=== PATIENT | female | born 1930 | race Caucasian/White ===

== ENCOUNTER 2021-05-11 16:52 | Emergency (ER) | payer SELFPAY | END 2021-05-11 17:04 | disposition left against medical advice (07) | LOC: ER FS 16:55 | DX: T80.62XA Other serum reaction due to vaccination, initial encounter (principal) ==

== ENCOUNTER 2021-06-17 13:46 | Emergency (ER) | payer MEDICARE, OTHER ==
[~2021-06-17] VITALS: Ht 162.6 cm; Wt 51.2 kg
--- NOTE | 2021-06-17 14:16 | ED Back Pain ---
General Chief Complaint: Back Problems Stated Complaint: BACK PAIN Source of Information: Patient, Caregiver History of Present Illness Date Seen by Provider: Jun 17, 2021 Time Seen by Provider: 14:04 Initial Comments 89-year-old female presenting with her son to the emergency department. She has been having increasing pain to the right flank and back over the last 2 weeks. She does have chronic back pain mainly takes tramadol once a day as well as 12.5 mcg fentanyl patch. She has not had any new injury or reason for the pain to get worse. She has not followed up through the clinic about her pain. She states she hoped it was going to improve on its own. She denies any cough, shortness of breath, abdominal pain, pain with urination, diarrhea, nausea, vomiting. She has had some urinary hesitancy. The right posterior flank pain has moved right to left at times. Heat seems to make the pain better. Associated Symptoms: No fever, No weakness, No numbness in legs/feet, No tingling in legs/feet, No sensory/motor loss, No lower back pain, No loss of bladder control, No loss of bowel control Allergies and Home Medications Allergies Coded Allergies: No Known Drug Allergies (Unverified , 06/17/21) Home Medications Baclofen 5 Mg Tablet, 5 MG PO BID PRN for flank pain/muscle spasm Prescribed by: OMARI LY on 06/17/21 1634 Cephalexin 500 Mg Capsule, 500 MG PO TID Prescribed by: OMARI LY on 06/17/21 1634 Polyethylene Glycol 3350 119 Gm Powder, 17 GM PO DAILY Prescribed by: OMARI LY on 06/17/21 1634 Tramadol HCl 50 Mg Tablet, 50 MG PO BID PRN for PAIN Prescribed by: OMARI LY on 06/17/21 1635 Patient Home Medication List Home Medication List Reviewed: Yes Review of Systems Constitutional: No chills, No fever EENTM: no symptoms reported Respiratory: no symptoms reported Cardiovascular: no symptoms reported Gastrointestinal: no symptoms reported Genitourinary: frequency, hesitancy Musculoskeletal: muscle cramps (Right posterior flank), other (Pain to the right posterior flank and lumbar spine) Skin: No rash Psychiatric/Neurological: Denies Numbness, Denies Paresthesia Physical Exam Vital Signs Vital Signs - First Documented 06/17/21 14:00 Temp 36.5 Pulse 79 Resp 18 B/P (MAP) 165/66 (99) Pulse Ox 99 O2 Delivery Room Air Capillary Refill : Height, Weight, BMI Height: '" Weight: lbs. oz. kg; BMI Method: General Appearance: Anxious Neck: Non Tender, Supple Cardiovascular: Regular Rate, Rhythm, Normal Peripheral Pulses Respiratory: Chest Non Tender, Lungs Clear, Normal Breath Sounds, No Accessory Muscle Use, No Respiratory Distress Gastrointestinal: Normal Bowel Sounds, No Pulsatile Mass, Non Tender, Soft Back: CVA Tenderness (R), Vertebral Tenderness (Lumbar spine) Extremity: Normal Capillary Refill, Normal Inspection, No Pedal Edema Neurologic/Psychiatric: Alert, Oriented x3 Skin: Normal Color, Warm/Dry; No Rash Progress/Results/Core Measures Results/Orders Lab Results Laboratory Tests Test 06/17/21 14:18 Range/Units Urine Color YELLOW Urine Clarity CLEAR Urine pH 6.0 5-9 Urine Specific [place] 1.020 1.016-1.022 Urine Protein NEGATIVE NEGATIVE Urine Glucose (UA) NEGATIVE NEGATIVE Urine Ketones NEGATIVE NEGATIVE Urine Nitrite NEGATIVE NEGATIVE Urine Bilirubin NEGATIVE NEGATIVE Urine Urobilinogen 0.2 < = 1.0 MG/DL Urine Leukocyte Esterase 1+ H NEGATIVE Urine RBC (Auto) NEGATIVE NEGATIVE Urine RBC NONE /HPF Urine WBC 2-5 /HPF Urine Squamous Epithelial Cells RARE /HPF Urine Crystals NONE /LPF Urine Bacteria NEGATIVE /HPF Urine Casts NONE /LPF Urine Mucus MODERATE H /LPF Urine Culture Indicated NO My Orders Orders - OMARI LY MD Ua Culture If Indicated (06/17/21 13:48) Ct Abdomen/Pelvis Wo (06/17/21 14:21) Ketorolac Injection (Toradol Injection) (06/17/21 14:21) Orphenadrine Inj (Ed Only) (Norflex Inje (06/17/21 14:23) Tramadol Tablet (Ultram Tablet) (06/17/21 16:21) Acetaminophen Tablet/Caplet (Tylenol T (06/17/21 16:21) Cephalexin Capsule (Keflex Capsule) (06/17/21 16:21) Vital Signs/I&O 06/17/21 06/17/21 14:00 16:50 Temp 36.5 36.4 Pulse 79 70 Resp 18 18 B/P (MAP) 165/66 (99) 108/68 Pulse Ox 99 96 O2 Delivery Room Air Room Air Progress Progress Note #1: Progress Note With the pain being more in the right flank as well as her lumbar spine will obtain a urinalysis to evaluate for urine infection or kidney stone. CT scan to evaluate for kidney stones or diverticulitis, colitis, compression fracture, UTI. Give Toradol and Norflex to try and help with pain Progress Note #2: Progress Note Urinalysis does show some leukocyte esterase so we will treat for UTI. The CT scan showed a 5 mm pulmonary nodule in the right lower lobe but there is no surrounding inflammation or effusion. Her bowels had increased stool for constipation. Cystic structures in the pelvis around where the ovaries should be. Patient states her pain was improved to 6 or 7. Will give tramadol and Tylenol here in the ED. Counseled to use MiraLAX to help with her constipation. Increase her tramadol from once a day to twice a day. Check back with clinic ultrasound of the ovaries. Have repeat ultrasound of the chest in 3 to 6 months Diagnostic Imaging Diagonstic Imaging: CT Plain Films/CT/US/NM/MRI: abdomen, pelvis Comments [facility] [place], [place] NAME: FRANK THOMPSON [facility] REC#: [id number] PT STATUS: REG ER : 1930 PHYSICIAN: OMARI LY MD ADMIT DATE: 06/17/21/ER FS Signed Date of Exam:06/17/21 CT ABDOMEN/PELVIS WO PROCEDURE: CT abdomen and pelvis without contrast. TECHNIQUE: Multiple contiguous axial images were obtained through the abdomen and pelvis without the use of intravenous contrast. Auto Exposure Controls were utilized during the CT exam to meet ALARA standards for radiation dose reduction. INDICATION: 89-year-old female, right flank pain x2 weeks. CORRELATION STUDY: None. FINDINGS: Examination compromised by motion artifact. LOWER THORAX: Likely areas of subpleural fibrosis. No significant basilar infiltrate. 5 mm nodule in the subpleural region in the right lower lobe. Heart size is borderline enlarged. Small hiatal hernia with some circumferential wall thickening at the gastroesophageal junction. LIVER: Unremarkable. GALLBLADDER: Present and unremarkable. No bile duct dilatation. SPLEEN: Unremarkable. PANCREAS: Unremarkable. ADRENAL GLANDS: 2.2 x 1.9 cm low-density left adrenal gland mass favoring adenoma. Right adrenal gland is unremarkable. KIDNEYS: Some generalized thinning of the renal parenchyma, may be very small cortical cyst in the left kidney. No calcification or obstruction. ABDOMINAL AORTA: Rather extensive abdominal aortic vascular calcification. Extensive calcification in the major branches as well. No aneurysm. GASTROINTESTINAL TRACT: Stomach is collapsed with gastric wall thickening. No evidence for small bowel obstruction. There is [id number] amount of stool through the colon. Colonic diverticulosis without evidence for acute diverticulitis. Negative appendix. URINARY BLADDER: Decompressed. REPRODUCTIVE: Uterus is unremarkable. 2.8 x 2.2 cm low-density right adnexal and 3.1 x 2.6 cm low-density left adnexal cystic mass. OSSEOUS STRUCTURES: Rather advanced degenerative changes are present. Various degrees of disc space narrowing. Generalized bony demineralization. There is slightly asymmetrical ossified L5 vertebral body without definitive acute compression fracture. OTHER: None. IMPRESSION: 1. Negative for acute abnormality of the abdomen or pelvis. 2. Negative for nephroureterolithiasis or obstructive uropathy. 3. Moderate stool retention. Colonic diverticulosis without evidence for acute diverticulitis. Negative for appendicitis. 4. Bilateral adnexal cystic masses, likely ovarian in etiology, may be cystadenomas. Cystic ovarian neoplasm is not excluded. Short-term nonemergent pelvic ultrasound imaging is recommended. 5. Small right lower lobe pulmonary nodule. Consideration for short-term follow-up nonemergent CT chest. Dictated by: Dictated on workstation # [id number] Dict: 06/17/21 1446 Trans: 06/17/21 1629 [id number] Interpreted by: DONNA DAVIS DO Electronically signed by: DONNA DAVIS DO 06/17/21 1629 Departure Impression Primary Impression: Cystitis without hematuria Additional Impressions: Constipation Qualified Codes: K59.03 - Drug induced constipation Right flank pain Right lower lobe pulmonary nodule Ovarian cyst Qualified Codes: N83.201 - Unspecified ovarian cyst, right side; N83.202 - Unspecified ovarian cyst, left side Disposition: 01 HOME, SELF-CARE Condition: Stable Departure-Patient Inst. Decision time for Depature: 16:35 Referrals: SELFSAMARIA MD (PCP/Family) Primary Care Physician Patient Instructions: Constipation, Adult ED, Flank Pain ED, Ovarian Cyst ED, Pulmonary Nodule, Urinary Tract Infection, Adult ED Add. Discharge Instructions: Take antibiotic to treat for urine infection. Use Miralax 17 grams or 1 capful mixed in 8 ounces of water or juice daily to help with constipation. Use muscle relaxer to help with back and flank pain from muscles May increase Tramadol to twice a day to help with pain control. May take Acetaminophen (Tylenol) 650 mg every 6 hours as needed for additional pain control Call Dr. Cornejo and the [facility] clinic Sunday morning about having ultrasound of pelvi s to evaluate cysts in ovaries as this would be concerning in post-menopausal setting and Radiology recommends having this test done. For the Pulmonary nodule of 5 mm size in right lower lung the radiologist recommends having a repeat CT scan done in 3-6 months for repeat evaluation and to ensure it is not changing. If your pain is not improving then Dr. Cornejo and the [facility] clinic may want to do additional testing as well. All discharge instructions reviewed with patient and/or family. Voiced understanding. Scripts Polyethylene Glycol 3350 (Miralax) 119 Gm Powder 17 GM PO DAILY for Constipation for 30 Days, #510 GM 0 Refills Prov: OMARI LY MD 06/17/21 Tramadol HCl (Tramadol HCl) 50 Mg Tablet 50 MG PO BID PRN for PAIN for 7 Days, #14 TAB 0 Refills Prov: OMARI LY MD 06/17/21 Baclofen (Baclofen) 5 Mg Tablet 5 MG PO BID PRN for flank pain/muscle spasm for 10 Days, #20 TAB 0 Refills Prov: OMARI LY MD 06/17/21 Cephalexin (Cephalexin) 500 Mg Capsule 500 MG PO TID for UTI for 5 Days, #15 CAP 0 Refills Prov: OMARI LY MD 06/17/21 OMARI LY MD Jun 17, 2021 14:16
[2021-06-17] MEDS ORDERED: KETOROLAC 30 MG/ML VIAL IM STA (14:21)
[2021-06-17] MEDS ORDERED: ORPHENADRINE 60 MG/2 ML (NORFLEX) AMP (ED ONLY) IM STA (14:23)
[2021-06-17 14:34] LABS: BILIRUBIN,URINE NEGATIVE (NEGATIVE); CLARITY,URINE CLEAR; COLOR,URINE YELLOW; GLUCOSE, URINE (UA) NEGATIVE (NEGATIVE); KETONES,URINE NEGATIVE (NEGATIVE); LEUKOCYTE ESTERASE ,URINE 1+ (NEGATIVE); NITRITE,URINE NEGATIVE (NEGATIVE); PROTEIN,URINE NEGATIVE (NEGATIVE)
--- NOTE | 2021-06-17 15:14 | Diagnostic Imaging Report ---
PROCEDURE: CT abdomen and pelvis without contrast. TECHNIQUE: Multiple contiguous axial images were obtained through the abdomen and pelvis without the use of intravenous contrast. Auto Exposure Controls were utilized during the CT exam to meet ALARA standards for radiation dose reduction. INDICATION: 89-year-old female, right flank pain x2 weeks. CORRELATION STUDY: None. FINDINGS: Examination compromised by motion artifact. LOWER THORAX: Likely areas of subpleural fibrosis. No significant basilar infiltrate. 5 mm nodule in the subpleural region in the right lower lobe. Heart size is borderline enlarged. Small hiatal hernia with some circumferential wall thickening at the gastroesophageal junction. LIVER: Unremarkable. GALLBLADDER: Present and unremarkable. No bile duct dilatation. SPLEEN: Unremarkable. PANCREAS: Unremarkable. ADRENAL GLANDS: 2.2 x 1.9 cm low-density left adrenal gland mass favoring adenoma. Right adrenal gland is unremarkable. KIDNEYS: Some generalized thinning of the renal parenchyma, may be very small cortical cyst in the left kidney. No calcification or obstruction. ABDOMINAL AORTA: Rather extensive abdominal aortic vascular calcification. Extensive calcification in the major branches as well. No aneurysm. GASTROINTESTINAL TRACT: Stomach is collapsed with gastric wall thickening. No evidence for small bowel obstruction. There is [id number] amount of stool through the colon. Colonic diverticulosis without evidence for acute diverticulitis. Negative appendix. URINARY BLADDER: Decompressed. REPRODUCTIVE: Uterus is unremarkable. 2.8 x 2.2 cm low-density right adnexal and 3.1 x 2.6 cm low-density left adnexal cystic mass. OSSEOUS STRUCTURES: Rather advanced degenerative changes are present. Various degrees of disc space narrowing. Generalized bony demineralization. There is slightly asymmetrical ossified L5 vertebral body without definitive acute compression fracture. OTHER: None. IMPRESSION: 1. Negative for acute abnormality of the abdomen or pelvis. 2. Negative for nephroureterolithiasis or obstructive uropathy. 3. Moderate stool retention. Colonic diverticulosis without evidence for acute diverticulitis. Negative for appendicitis. 4. Bilateral adnexal cystic masses, likely ovarian in etiology, may be cystadenomas. Cystic ovarian neoplasm is not excluded. Short-term nonemergent pelvic ultrasound imaging is recommended. 5. Small right lower lobe pulmonary nodule. Consideration for short-term follow-up nonemergent CT chest. Dictated by: Dictated on workstation # [id number]
[2021-06-17 15:30] LABS: BACTERIA,URINE NEGATIVE /HPF; SQUAMOUS EPITHELIAL CELL,UR RARE /HPF
[2021-06-17] MEDS ORDERED: ACETAMINOPHEN 325 MG TABLET PO STA (16:21)
[2021-06-17] MEDS ORDERED: CEPHALEXIN 250 MG (KEFLEX) CAP PO STA (16:21)
[2021-06-17] MEDS ORDERED: POLY119P5 PO (16:34)
[2021-06-17] MEDS ORDERED: BACL5TAB PO (16:34)
[2021-06-17] MEDS ORDERED: CEPH500C PO (16:34)
[2021-06-17] MEDS ORDERED: TRM50T PO (16:34)
[2021-06-17 16:50] VITALS: BP 108/68
== END 2021-06-17 16:50 | disposition home or self-care (01) ==
LOC: EDUNIT# 13:46 → ER FS 13:48
DX: N30.90 Cystitis, unspecified without hematuria (principal); K59.00 Constipation, unspecified; R91.1 Solitary pulmonary nodule; N83.201 Unspecified ovarian cyst, right side; N83.202 Unspecified ovarian cyst, left side; G89.29 Other chronic pain
CPT/HCPCS: 74176; 81000